=== PATIENT | female | born 2005 | race Caucasian/White ===

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

== ENCOUNTER 2023-06-18 23:33 | Emergency (ER) | payer OTHER, SELFPAY ==
--- NOTE | ~2023-06-18 | XR_ITS ---
Right foot Technique: AP, oblique, and lateral views were obtained. Clinical History: Foreign body, pain Findings: No acute fracture or dislocation is seen. Osseous alignment is anatomic. Joint spaces are p reserved without erosive or degenerative change. Soft tissues are unremarkable. Impression: Unremarkable right foot radiographs. Reviewed, dictated and finalized at location . Impression: Unremarkable right foot radiographs.
--- NOTE | ~2023-06-18 | XR_ITS ---
Left foot Technique: AP, oblique, and lateral views were obtained. Clinical History: Foreign body, pain Findings: No acute fracture or dislocation is seen. Osseous alignment is anatomic. Joint spaces are p reserved without erosive or degenerative change. There are probable 4 mm triangular foreign body at t he plantar aspect of the first MTP joint region.. Impression: Probable 4 mm triangular foreign body at the plantar aspect of the first MTP joint region. Correlate with physical exam. Reviewed, dictated and finalized at location M. Impression: Probable 4 mm triangular foreign body at the plantar aspect of the first MTP levi int region. Correlate with physical exam.
[2023-06-18 23:56] VITALS: BP 118/85; PULSE 91; RESP 14; TEMP 37.2; O2SAT 100
[2023-06-19 04:35] VITALS: BP 110/72; PULSE 72; RESP 15; TEMP 36.7; O2SAT 100
[2023-06-19 04:46] VITALS: BP 117/70; PULSE 73; RESP 15; O2SAT 100
[2023-06-19] MEDS: ACETAMINOPHEN 325 MG TABLET 650 MG PO (05:33)
[2023-06-19] MEDS: LIDOCAINE HCL 1% LOCAL INJ 10 ML VIAL INFILTRATE (06:53)
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
[2023-06-19] MEDS: IBUPROFEN 600 MG TABLET PO (08:44)
[2023-06-19 08:54] VITALS: BP 107/78; PULSE 70; RESP 16; O2SAT 98
== END 2023-06-19 09:00 | disposition home or self-care (01) ==
PROVIDERS: Emergency Provider Student in an Organized Health Care Education/Training Program
DX: S91.322A Laceration with foreign body, left foot, initial encounter (principal); F17.219 Nicotine dependence, cigarettes, with unspecified nicotine-induced disorders; W25.XXXA Contact with sharp glass, initial encounter
CPT/HCPCS: 73630; 99284; A9270

== ENCOUNTER 2024-02-14 01:15 | Emergency (ER) | payer OTHER, SELFPAY ==
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
[2024-02-14 01:13] VITALS: BP 106/70; PULSE 90; RESP 12; TEMP 36.8; O2SAT 100
[2024-02-14] MEDS: ACETAMINOPHEN 500 MG TABLET 1000 MG PO (01:35)
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
[2024-02-14 02:51] VITALS: PULSE 68; RESP 16; O2SAT 98
== END 2024-02-14 02:52 | disposition home or self-care (01) ==
PROVIDERS: Emergency Provider Physician Assistant
DX: T74.11XA Adult physical abuse, confirmed, initial encounter (principal); S02.2XXA Fracture of nasal bones, initial encounter for closed fracture; S00.11XA Contusion of right eyelid and periocular area, initial encounter; F41.9 Anxiety disorder, unspecified; F17.290 Nicotine dependence, other tobacco product, uncomplicated; Y07.031 Male partner, former, perpetrator of maltreatment and neglect
CPT/HCPCS: 70450; 70486; 99284; A9270